=== PATIENT | male | born 1990 | race Two or more races ===

== ENCOUNTER 2024-06-01 00:33 | Emergency (ER) | payer OTHER ==
[~2024-06-01] VITALS: Ht 182.9 cm; Wt 85.3 kg
[2024-06-01] MEDS ORDERED: PROMETHAZINE HCL 50 MG/ML AMPUL IM STA (00:44)
[2024-06-01] MEDS ORDERED: METOCLOPRAMIDE HCL 5 MG/ML VIAL IM STA (00:44)
[2024-06-01] MEDS ORDERED: FAMOtidine 10 MG/ML (4ML VIAL) IV PUSH STA (00:46)
[2024-06-01] MEDS ORDERED: 0.9 % SODIUM CHLORIDE 1,000 ML IV STA (00:46)
[2024-06-01] MEDS ORDERED: CEFAZOLIN SODIUM 1,000 MG VIAL IV STA (00:48)
[2024-06-01] MEDS ORDERED: HYOSCYAMINE SULFATE 0.125 MG TAB.SUBL SL ONE (01:00)
[2024-06-01 01:30] LABS: HEMATOCRIT 40.9 % (39.0-48.0); HEMOGLOBIN 13.9 g/dL (13-16.00); MEAN CELL VOLUME 85.3 fL (80.0-100.00); MEAN CORPUSCULAR HEMOGLOBIN 28.9 pg (27.00-32.0); MEAN CORPUSCULAR HGB CONC 33.9 g/dl (32.0-36.0); PLATELET COUNT 241 K/uL (150-450); RED CELL DISTRIBUTION WIDTH 14.4 % (11.5-14.5)
[2024-06-01 02:11] LABS: CALCIUM 9.9 mg/dL (8.5-10.1); CREATININE SERUM 1.1 mg/dL (0.70-1.30); GFR 78.08; POTASSIUM 3.43 mEq/L (3.5-5.1)
[2024-06-01] MEDS ORDERED: DIPHENHYDRAMINE HCL 50 MG/ML VIAL 1ML IV STA (02:37)
== END 2024-06-01 05:49 | disposition home or self-care (01) ==
LOC: ER 00:33
DX: K52.89 Other specified noninfective gastroenteritis and colitis (principal); A05.9 Bacterial foodborne intoxication, unspecified; Z88.6 Allergy status to analgesic agent